=== PATIENT | male | born 1970 | race Caucasian/White ===

== ENCOUNTER 2017-10-07 03:38 | Emergency (ER) | payer OTHER ==
[2017-10-07] MEDS ORDERED: KETOROLAC 60 MG/2 ML VIAL IVP STA (03:54)
[2017-10-07] MEDS ORDERED: SODIUM CHLORIDE 0.9% 1,000 ML IV ONE (03:54)
--- NOTE | 2017-10-07 03:59 | ED Physician Documentation ---
PD HPI URI - Stated complaint Stated Complaint: HIGH BLOOD PRESSURE - Chief complaint Chief Complaint: Fever - History obtained from History obtained from: Patient, Family - History of Present Illness Timing - onset: How many days ago (2) Timing details: Gradual onset, Still present Associated symptoms: Fever, Chills, Sweats, Nasal congestion, Productive cough, Chest pain, Dyspnea Contributing factors: Sick contact Similar symptoms before: No diagnosis Recently seen: Not recently seen - Additional information Additional information: Patient is a 47 year old male with no significant past medical history who is presenting to the emergency department for fevers, cough, chest pain, shortness of breath. patient states that his co-worker was sick on saturday. patient states that he was ok over the weekend but he woke up today feeling much worse. patient states that he took his blood pressure and it was 170/100 so he told his that he needed to come to the hospital. Review of Systems Constitutional: reports: Fever, Chills, Myalgias Eyes: denies: Decreased vision, Photophobia Ears: denies: Ear pain, Drainage/discharge Nose: denies: Congestion Throat: denies: Sore throat Cardiac: reports: Chest pain / pressure. denies: Palpitations Respiratory: reports: Dyspnea, Cough. denies: Wheezing GI: reports: Nausea. denies: Vomiting, Constipation, Diarrhea : reports: Reviewed and negative Skin: reports: Reviewed and negative Musculoskeletal: reports: Reviewed and negative Neurologic: reports: Reviewed and negative Psychiatric: reports: Reviewed and negative Endocrine: reports: Reviewed and negative PD PAST MEDICAL HISTORY - Present Medications Home Medications: Ambulatory Orders Medication Instructions Recorded Confirmed Omeprazole [PriLOSEC] 20 mg PO DAILY 10/07/17 10/07/17 Ondansetron Odt [Zofran] 4 mg TL Q6H PRN #20 tablet 10/07/17 - Allergies Allergies/Adverse Reactions: Allergies Allergy/AdvReac Type Severity Reaction Status Date / Time codeine AdvReac Emesis Verified 10/07/17 03:47 PD ED PE NORMAL - General General: Alert and oriented X 3, Well developed/nourished - HEENT HEENT: Atraumatic, PERRL - Neck Neck: Supple, no meningeal sign - Respiratory Respiratory: No respiratory distress - Abdomen Abdomen: Soft, Non tender, Non distended - Derm Derm: Normal color, Warm and dry, No rash - Extremities Extremities: No deformity, Normal ROM s pain, No calf tenderness / cord - Neuro Neuro: Alert and oriented X 3, No motor deficit, No sensory deficit, Normal speech Eye Opening: Spontaneous Motor: Obeys Commands Verbal: Oriented GCS Score: 15 PD ED PE EXPANDED - HEENT HEENT: Nasal congestion, Rhinorrhea, Dry mucous membranes - Cardiac Cardiac: Tachy Results - Vitals Vitals: Vital Signs - 24 hr 10/07/17 10/07/17 10/07/17 03:44 04:02 04:32 Temperature 36.8 C Heart Rate 125 H 108 H 97 Respiratory 23 24 18 Rate Blood Pressure 148/95 H 148/103 H 144/91 H O2 Saturation 99 99 99 10/07/17 10/07/17 05:00 05:15 Temperature Heart Rate 108 H 112 H Respiratory 18 18 Rate Blood Pressure 148/92 H O2 Saturation 98 Oxygen O2 Source Room air - EKG (time done) 0406 Rate: Rate (enter#) (108) Rhythm: Sinus tachycardia [place]: Normal Intervals: Normal [place] QRS: Normal Ischemia: Normal ST segments Compare to prior EKG: Old EKG unavailable - Labs Labs: Laboratory Tests 10/07/17 10/07/17 10/07/17 04:15 04:15 04:15 WBC 11.4 H RBC 5.32 Hgb 14.5 Hct 43.1 MCV 81.1 MCH 27.3 MCHC 33.7 RDW 13.4 Plt Count 226 MPV 9.1 Neut # 8.0 H Lymph # 2.1 [place] # 1.1 H Eos # 0.1 Baso # 0.1 Absolute Nucleated RBC 0.00 Nucleated RBC % 0.0 Sodium 136 Potassium 3.7 Chloride 104 Carbon Dioxide 21 Anion Gap 11.0 BUN 13 Creatinine 1.0 Estimated GFR (MDRD) 80 L Glucose 135 H Calcium 9.0 Total Bilirubin 1.0 AST 31 ALT 45 Alkaline Phosphatase 125 H Troponin I < 0.04 Total Protein 8.4 H Albumin 4.1 Globulin 4.3 H Albumin/Globulin Ratio 1.0 Lipase 15 L Influenza A (Rapid) Influenza B (Rapid) Influenza Types A,B Ag 10/07/17 04:15 WBC RBC Hgb Hct MCV MCH MCHC RDW Plt Count MPV Neut # Lymph # [place] # Eos # Baso # Absolute Nucleated RBC Nucleated RBC % Sodium Potassium Chloride Carbon Dioxide Anion Gap BUN Creatinine Estimated GFR (MDRD) Glucose Calcium Total Bilirubin AST ALT Alkaline Phosphatase Troponin I Total Protein Albumin Globulin Albumin/Globulin Ratio Lipase Influenza A (Rapid) Negative Influenza B (Rapid) Negative Influenza Types A,B Ag - - Rads (name of study) chest x-ray Radiology: Final report received (no acute abnormality) PD MEDICAL DECISION MAKING - ED course Complexity details: reviewed old records, reviewed results, re-evaluated patient , considered differential, d/w patient, d/w family ED course: Patient was seen and examined at bedside. IV access was gained and labs were drawn. Patient was started on a fluid bolus. ekg was performed and showed sinus tach without any signs of acute ischemia. Patient's chest x-ray was also within normal limits. Patient's labs were unremarkable. Patient had a HEART score of 2 and his symptoms were likely viral in nature. Patient was treated with a duoneb with minimal relief. Patient required no further work up and was stable for discharge with outpatient follow up. Departure - Departure Disposition: 01 Home, Self Care Clinical Impression: Viral syndrome Condition: Good Instructions: ED Viral Syndrome Follow-Up: primary,care provider [Other] - Within 3 Days Prescriptions: Ondansetron Odt [Zofran] 4 mg TL Q6H PRN #20 tablet PRN Reason: Nausea / Vomiting Comments: Your diagnostics today were within normal limits. Your symptoms were likely viral in nature. It is important that you stay well hydrated and get plenty of rest. You may develop nausea, vomiting and diarrhea over the next few days. You should follow up with your doctor if your symptoms persist. You may return to the emergency department at any time for new, worsening or uncontrollable symptoms. Forms: Activity restrictions
--- NOTE | 2017-10-07 04:18 | XRAY Report ---
EXAM: CHEST RADIOGRAPHY EXAM DATE: 10/07/2017 04:11 AM. CLINICAL HISTORY: Fever, cough. COMPARISON: None. TECHNIQUE: 1 view. FINDINGS: Lungs/Pleura: No alveolar consolidation or pleural effusion seen. No pneumothorax. Mediastinum: Within exam limitations, the cardiomediastinal contour is normal. Other: None. IMPRESSION: 1. No acute abnormality seen in the chest. [facility] Referring Provider Line: [phone] SITE ID: [id number]
--- NOTE | 2017-10-07 04:18 | XRAY Preliminary Report ---
Exam: XR CHEST 1 VIEW X-RAY IMPRESSION: 1. No acute abnormality seen in the chest. [facility] SITE ID: [id number]
[2017-10-07 04:33] LABS: ALBUMIN 4.1 g/dL (3.2-5.5); TOTAL PROTEIN 8.4 g/dL (6.7-8.2)
[2017-10-07 04:34] LABS: BASOPHILS # (AUTO) 0.1 10^3/uL (0.0-0.1); BASOPHILS % (AUTO) 0.7 %; EOSINOPHILS # (AUTO) 0.1 10^3/uL (0.0-0.7); EOSINOPHILS % (AUTO) 0.9 %; HGB - HEMOGLOBIN 14.5 g/dL (14.0-18.0); LYMPHOCYTES # (AUTO) 2.1 10^3/uL (1.5-3.5); LYMPHOCYTES % (AUTO) 18.3 %; MEAN CORPUSCULAR HEMOGLOBIN 27.3 pg (27.0-31.0); MEAN CORPUSCULAR HGB CONC 33.7 g/dL (32.0-36.0); MEAN CORPUSCULAR VOLUME 81.1 fL (80.0-94.0); MEAN PLATELET VOLUME 9.1 fL (7.4-11.4); MONOCYTES # (AUTO) 1.1 10^3/uL (0.0-1.0); MONOCYTES % (AUTO) 9.6 %; NEUTROPHILS % (AUTO) 70.5 %; PLT - PLATELET COUNT 226 10^3/uL (130-450); RED BLOOD COUNT 5.32 10^6/uL (4.70-6.10); RED CELL DISTRIBUTION WIDTH 13.4 % (12.0-15.0); WHITE BLOOD COUNT 11.4 x10^3/uL (4.8-10.8)
[2017-10-07] MEDS ORDERED: IPRATROPIUM/ALBUTEROL 3 ML NEB INH STA (04:43)
[2017-10-07 05:19] VITALS: BP 148/92
== END 2017-10-07 05:45 | disposition home or self-care (01) ==
LOC: ED 03:38
DX: B34.9 Viral infection, unspecified (principal); R00.0 Tachycardia, unspecified; R07.9 Chest pain, unspecified
CPT/HCPCS: 36415; 71045; 80053; 83690; 84484; 85025; 87275; 87276; 93005; 94640; 96361; 96374; 99284; 99285; J7620